=== PATIENT | male | born 1990 | race African-American/Black ===

== ENCOUNTER 2020-05-07 13:37 | Inpatient (IN) | payer MEDICAID ==
[~2020-05-07] VITALS: Ht 172.7 cm; Wt 72.6 kg
[~2020-05-07 13:37] MED LIST: PIPERACILLIN/TAZ 3.375G PREMIX 50 ML IV SCH
[2020-05-07] MEDS ORDERED: SODIUM CHLORIDE 0.9% 1,000 ML IV ONE ×2 (16:45→17:15)
[2020-05-07] MEDS ORDERED: ACETAMINOPHEN 650MG SUPP PR ONE (17:15)
[2020-05-07 17:17] LABS: CLARITY URINE TURBID (CLEAR); COLOR URINE DARK YELLOW (YELLOW); KETONES URINE TRACE (NEGATIVE); LEUKOCYTE ESTERASE URINE 1+ (NEGATIVE); NITRITE URINE NEGATIVE (NEGATIVE); OCCULT BLOOD URINE 3+ (NEGATIVE); PROTEIN URINE 3+ (NEGATIVE); SPECIFIC GRAVITY URINE 1.026 (1.005-1.030)
[2020-05-07 17:25] LABS: BASOPHILS % 0.5 % (0.0-2.0); EOSINOPHILS % 2.4 % (0.0-5.0); HEMATOCRIT. 43.8 % (42.0-52.0); HEMOGLOBIN. 14.3 g/dL (14.0-18.0); LYMPHOCYTES % 11.6 % (20.0-50.0); MEAN CORPUSCULAR HEMOGLOBIN 30.7 pg (28.0-32.0); MEAN CORPUSCULAR VOLUME 93.9 fL (80.0-94.0); MEAN PLATELET VOLUME 7.6 fl (7.4-10.4); MONOCYTES % 11.4 % (2.0-8.0); NEUTROPHILS % 74.1 % (40.0-76.0); PLATELET 266 x1000/uL (130-400); RED BLOOD CELL COUNT 4.67 mill/uL (4.7-6.1); RED CELL DISTRIBUTION WIDTH 14.4 % (11.6-14.6)
[2020-05-07 17:27] LABS: PROTHROMBIN TIME 10.3 sec (9.6-11.0)
[2020-05-07 17:31] LABS: CHLORIDE 116 mEq/L (98-107)
[2020-05-07 17:35] LABS: ETHANOL BLOOD < 10 mg/dL
[2020-05-07 17:42] LABS: *AMPHETAMINES SCREEN URINE PRESUMTIVE POSITIVE (NEGATIVE); *BARBITURATES SCREEN URINE NEGATIVE (NEGATIVE); *BENZODIAZEPINES SCREEN URINE NEGATIVE (NEGATIVE); *COCAINE SCREEN URINE NEGATIVE (NEGATIVE); METHADONE URINE SCREEN NEGATIVE (NEGATIVE)
[2020-05-07 17:44] LABS: CANNABINOID URINE SCREEN NEGATIVE (NEGATIVE); OPIATES URINE SCREEN NEGATIVE (NEGATIVE); PHENCYCLIDINE URINE SCREEN PRESUMTIVE POSITIVE (NEGATIVE)
[2020-05-07] MEDS ORDERED: LORAZEPAM 2MG/ML CPJ IV ONE (18:00)
[2020-05-07] MEDS ORDERED: PIPERACILLIN/TAZ 3.375G PREMIX 50 ML IV ONE (18:00)
[2020-05-07] MEDS ORDERED: PIPERACILLIN/TAZOBACTAM 3.375GM/50ML PREMIX IV ONE (18:00)
[2020-05-07] MEDS ORDERED: PIPERACILLIN/TAZ 3.375G PREMIX 50 ML IV SCH (18:00)
[2020-05-07 18:52] LABS: CREATINE KINASE 1695 IU/L (39-308)
[2020-05-07] MEDS ORDERED: VANCOMYCIN 1 G PREMIX 200 ML IV ONE (19:00)
[2020-05-07] MEDS ORDERED: ACETAMINOPHEN 325MG TABLET PO PRN ×2 (22:45)
[2020-05-07] MEDS ORDERED: IPRATROPIUM/ALBUTEROL 0.5-3(2.5)MG/3ML NEB NEB PRN (22:45)
[2020-05-07] MEDS ORDERED: CLONIDINE 0.1MG TABLET PO PRN (22:45)
[2020-05-07] MEDS ORDERED: GUAIFENESIN 200MG/10ML SUGAR FREE UDC PO PRN (22:45)
[2020-05-07] MEDS ORDERED: LORAZEPAM 2MG/ML CPJ IV PRN (22:45)
[2020-05-07] MEDS ORDERED: DOCUSATE SODIUM 100MG CAPSULE PO PRN (22:45)
[2020-05-07] MEDS ORDERED: ONDANSETRON HCL 4MG/2ML INJ IV PRN (22:45)
[2020-05-07] MEDS ORDERED: MAGNESIUM/ALUMINUM HYDROXIDE/SIMETHICONE 30ML UDC PO PRN (22:45)
[2020-05-07] MEDS ORDERED: ENOXAPARIN 40MG/0.4ML SYR SUBCUT SCH (23:00)
[2020-05-07] MEDS ORDERED: LACTATED RINGERS 1,000 ML IV SCH (23:00)
[2020-05-07] MEDS ORDERED: ASPIRIN 81MG TABLET PO SCH (23:00)
[2020-05-07] MEDS: ASPIRIN 81MG TABLET PO SCH (23:00)
[2020-05-07 23:25] LABS: BG BASE EXCESS -11.9 mmol/L (-2.0-2.0); BG CARBOXYHEMOGLOBIN 0.3 % (0.5-1.5); BG DEOXYHEMOGLOBIN 1.3 % (0.0-5.0); BG FRACTION INSPIRED OXYGEN 36; BG HCO3 ACT 13.4 mmol/L (22.0-26.0); BG METHEMOGLOBIN 0.5 % (0.0-1.5); BG OXYGEN SATURATION 98.7 % (92.0-98.5); BG OXYHEMOGLOBIN 97.9 % (94.0-97.0); BG PCO2 29.3 mmHg (35.0-45.0); BG PH 7.279 (7.350-7.450); BG PO2 180.1 mmHg (75.0-100.0); BG SAMPLE SITE LEFT RADIAL; BG TOTAL HEMOGLOBIN 13.6 g/dL (12.0-18.0); BG VENT MODE NASAL CANNULA
[2020-05-08] MEDS ORDERED: VANCOMYCIN 500 MG PREMIX 100 ML IV SCH
[2020-05-08 01:25] LABS: HEPATITIS B SURFACE ANTIGEN NEGATIVE
[2020-05-08 01:54] LABS: HEPATITIS A AB IGM NEGATIVE (NEGATIVE)
[2020-05-08 05:39] LABS: BASOPHILS % 0.3 % (0.0-2.0); HEMATOCRIT. 41.2 % (42.0-52.0); HEMOGLOBIN. 13.4 g/dL (14.0-18.0); LYMPHOCYTES % 9.6 % (20.0-50.0); MEAN CORPUSCULAR HEMOGLOBIN 30.3 pg (28.0-32.0); MEAN CORPUSCULAR VOLUME 93.2 fL (80.0-94.0); MEAN PLATELET VOLUME 7.5 fl (7.4-10.4); MONOCYTES % 7.7 % (2.0-8.0); NEUTROPHILS % 82.4 % (40.0-76.0); PLATELET 101 x1000/uL (130-400); RED BLOOD CELL COUNT 4.41 mill/uL (4.7-6.1); RED CELL DISTRIBUTION WIDTH 14.1 % (11.6-14.6)
[2020-05-08 05:47] LABS: CHLORIDE 122 mEq/L (98-107)
[2020-05-08 05:54] LABS: HDL CHOLESTEROL 72 mg/dL (40-59); LDL CHOLESTEROL 58 mg/dL (5-100)
[2020-05-08] MEDS ORDERED: PIPERACILLIN/TAZ 3.375G PREMIX 50 ML IV SCH (06:00)
[2020-05-08 06:33] LABS: CREATINE KINASE 1695 IU/L (39-308)
[2020-05-08] MEDS: PIPERACILLIN/TAZOBACTAM 3.375 G in DEXT 5% WATER 100 ML IV SCH ×2 (08:29→16:12)
[2020-05-08] MEDS: ASPIRIN 81MG TABLET PO SCH (08:30)
[2020-05-08] MEDS: HEPARIN 5000 UNITS/ML VIAL SUBCUT SCH ×2 (08:46→22:04)
[2020-05-08] MEDS ORDERED: HEPARIN 5000 UNITS/ML VIAL SUBCUT SCH (09:00)
[2020-05-08] MEDS ORDERED: VANCOMYCIN 1 G PREMIX 200 ML IV NR (10:00)
[2020-05-08] MEDS ORDERED: DEXT 5%/0.45% NACL 1000ML 1,000 ML IV SCH (10:15)
[2020-05-08] MEDS: DEXT 5%/0.2% NACL 1,000 ML IV SCH (16:12)
[2020-05-08 23:18] VITALS: BP 119/79
[2020-05-08 23:55] VITALS: BP 119/79
[2020-05-09] MEDS: DEXT 5%/0.2% NACL 1,000 ML IV SCH ×3 (01:30→20:12)
[2020-05-09] MEDS: PIPERACILLIN/TAZOBACTAM 3.375 G in DEXT 5% WATER 100 ML IV SCH ×2 (01:32→08:39)
[2020-05-09 04:00] VITALS: BP 112/68
[2020-05-09 06:20] LABS: BASOPHILS % 0.7 % (0.0-2.0); EOSINOPHILS % 2.4 % (0.0-5.0); HEMATOCRIT. 37.3 % (42.0-52.0); HEMOGLOBIN. 12.5 g/dL (14.0-18.0); LYMPHOCYTES % 16.9 % (20.0-50.0); MEAN CORPUSCULAR VOLUME 92.5 fL (80.0-94.0); MEAN PLATELET VOLUME 7.6 fl (7.4-10.4); MONOCYTES % 6.6 % (2.0-8.0); NEUTROPHILS % 73.4 % (40.0-76.0); PLATELET 72 x1000/uL (130-400); RED BLOOD CELL COUNT 4.03 mill/uL (4.7-6.1); RED CELL DISTRIBUTION WIDTH 14.1 % (11.6-14.6)
[2020-05-09 06:24] LABS: CHLORIDE 116 mEq/L (98-107)
[2020-05-09 06:45] VITALS: BP 117/83
[2020-05-09 08:21] VITALS: BP 110/74
[2020-05-09] MEDS: HEPARIN 5000 UNITS/ML VIAL SUBCUT SCH (09:00)
[2020-05-09] MEDS: ASPIRIN 81MG TABLET PO SCH (09:23)
[2020-05-09] MEDS: VANCOMYCIN 750 MG PREMIX 150 ML IV SCH ×2 (10:57→20:11)
[2020-05-09 12:10] VITALS: BP 105/62
[2020-05-09 13:06] LABS: HIV SCREEN 4G Non Reactive (Non Reactive)
[2020-05-09] MEDS ORDERED: KCL 20MEQ/100ML PREMIX 100 ML IV SCH (14:00)
[2020-05-09] MEDS ORDERED: CALCIUM GLUCONATE 1GM PREMIX 50 ML IV SCH (14:00)
[2020-05-09 16:00] VITALS: BP 113/71
[2020-05-09 17:36] LABS: HEMATOCRIT 40.1 % (42.0-52.0); HEMOGLOBIN 13.2 g/dL (14.0-18.0); MEAN CORPUSCULAR HEMOGLOBIN 30.6 pg (28.0-32.0); MEAN CORPUSCULAR VOLUME 92.8 fL (80.0-94.0); PLATELET 71 x1000/uL (130-400); RED BLOOD CELL COUNT 4.33 mill/uL (4.7-6.1); RED CELL DISTRIBUTION WIDTH 14.2 % (11.6-14.6)
[2020-05-09 17:50] LABS: CHLORIDE 114 mEq/L (98-107)
[2020-05-09 17:54] LABS: PHOSPHORUS 3.1 mg/dL (2.5-4.9)
[2020-05-09 18:52] LABS: T4 FREE 0.99 ng/dL (0.76-1.46)
[2020-05-09 20:21] VITALS: BP 120/63
[2020-05-10 00:37] VITALS: BP 122/67
[2020-05-10 04:00] VITALS: BP 107/48
[2020-05-10] MEDS: DEXT 5%/0.2% NACL 1,000 ML IV SCH ×2 (06:00→18:16)
[2020-05-10 08:00] VITALS: BP 107/48
[2020-05-10] MEDS: THIAMINE HCL 100MG TABLET PO SCH ×2 (09:00→09:22)
[2020-05-10] MEDS: FOLIC ACID 1MG TABLET PO SCH ×2 (09:00→09:22)
[2020-05-10] MEDS: MULTIVITAMINS,THER W-MINERALS TABLET PO SCH ×2 (09:00→09:22)
[2020-05-10] MEDS: ASPIRIN 81MG TABLET PO SCH (09:22)
[2020-05-10] MEDS: VANCOMYCIN 750 MG PREMIX 150 ML IV SCH ×2 (09:37→19:57)
[2020-05-10 12:00] VITALS: BP 90/40
[2020-05-10] MEDS ORDERED: DILTIAZEM HCL 30MG TABLET PO SCH (12:00)
[2020-05-10] MEDS ORDERED: ASPI-1160 PO (13:28)
[2020-05-10 16:00] VITALS: BP 97/50
[2020-05-10 20:00] VITALS: BP 99/50
[2020-05-11] VITALS: BP 90/40
[2020-05-11] MEDS: DEXT 5%/0.2% NACL 1,000 ML IV SCH (02:24)
[2020-05-11] MEDS: ASPIRIN 81MG TABLET PO SCH (09:04)
[2020-05-11] MEDS: FOLIC ACID 1MG TABLET PO SCH (09:05)
[2020-05-11] MEDS: VANCOMYCIN 750 MG PREMIX 150 ML IV SCH (09:05)
[2020-05-11] MEDS: THIAMINE HCL 100MG TABLET PO SCH (09:05)
[2020-05-11] MEDS: MULTIVITAMINS,THER W-MINERALS TABLET PO SCH (09:05)
[2020-05-11 09:09] VITALS: BP 107/64
[2020-05-11 12:12] VITALS: BP 101/61
[2020-05-11 13:19] VITALS: BP 105/65
== END 2020-05-11 14:47 | disposition home or self-care (01) | DRG 720 ==
LOC: ER 14:10 → EDBD 22:00 → MICUSO 22:00 → EDBEDREQ 22:58 → EDBEDREQTM 22:58 → 7WST 05-08 22:02 → 6WST 05-09 06:20
PROVIDERS: ADMIT Internal Medicine; ATTEND Internal Medicine
DX: A41.89 Other specified sepsis (principal); G92 Toxic encephalopathy; D64.9 Anemia, unspecified; D69.6 Thrombocytopenia, unspecified; E78.5 Hyperlipidemia, unspecified; E83.51 Hypocalcemia; E87.0 Hyperosmolality and hypernatremia; E87.2 Acidosis; E87.6 Hypokalemia; I10 Essential (primary) hypertension; K52.9 Noninfective gastroenteritis and colitis, unspecified; K72.00 Acute and subacute hepatic failure without coma; N17.9 Acute kidney failure, unspecified; R32 Unspecified urinary incontinence; Z20.828 Contact with and (suspected) exposure to other viral communicable diseases; N39.0 Urinary tract infection, site not specified; R65.20 Severe sepsis without septic shock; I27.20 Pulmonary hypertension, unspecified; F15.10 Other stimulant abuse, uncomplicated; F16.10 Hallucinogen abuse, uncomplicated; R80.9 Proteinuria, unspecified; M62.82 Rhabdomyolysis; T36.0X5A Adverse effect of penicillins, initial encounter; Y92.238 Other place in hospital as the place of occurrence of the external cause; T45.515A Adverse effect of anticoagulants, initial encounter; R31.9 Hematuria, unspecified; I27.21 Secondary pulmonary arterial hypertension
CPT/HCPCS: 36415; 36600; 71045; 71250; 74176; 76770; 80048; 80053; 80061; 80076; 80202; 80305; 80320; 81003; 82140; 82375; 82550; 82553; 82607; 82746; 82805; 83036; 83605; 83735; 84100; 84439; 84443; 84481; 84484; 85025; 85027; 86705; 86709; 86803; 87077; 87340; 87389; 87493; 92610; 93005; 93306; 93970; 96365; 97162; 97166; 99291; J0610; J1644; J2060; J2543; J3370; J3480; J7030; J7060; U0003; G0480